=== PATIENT | male | born 1970 | race Two or more races ===

== ENCOUNTER 2018-08-26 09:22 | Outpatient (CLI) | payer OTHER | END 2018-08-26 14:42 | disposition home or self-care (01) | LOC: LAB 09:22 | DX: K80.10 Calculus of gallbladder with chronic cholecystitis without obstruction (principal); R94.5 Abnormal results of liver function studies ==

== ENCOUNTER 2018-08-26 09:48 | Outpatient (CLI) | payer OTHER | END 2018-08-26 15:37 | disposition home or self-care (01) | LOC: MRI 09:48 | DX: K80.10 Calculus of gallbladder with chronic cholecystitis without obstruction (principal); R94.5 Abnormal results of liver function studies | CPT/HCPCS: 74181 ==

== ENCOUNTER 2018-09-10 05:10 | Day surgery (SDC) | payer OTHER ==
[~2018-09-10 05:10] MED LIST: TAGAMET300 MG PO
== END 2018-09-10 12:30 | disposition home or self-care (01) ==
LOC: CIR.AMB 05:10
DX: K80.10 Calculus of gallbladder with chronic cholecystitis without obstruction (principal)

== ENCOUNTER 2019-12-01 08:27 | Emergency (ER) | payer OTHER ==
[~2019-12-01] VITALS: Ht 177.8 cm; Wt 83.9 kg
== END 2019-12-01 10:41 | disposition home or self-care (01) ==
LOC: ER 08:27
DX: B34.9 Viral infection, unspecified (principal)